=== PATIENT | female | born 1960 | race Caucasian/White ===

== ENCOUNTER 2017-10-16 09:11 | Emergency (ER) | payer MEDICARE, MEDICAID ==
[~2017-10-16] VITALS: Ht 167.6 cm; Wt 95.5 kg
[~2017-10-16 09:11] MED LIST: ACET-784 PO; AMLO2.5T PO; CELE200 PO; DSS100 PO; IPRA4AER IH; LEVO25TA9 PO; LITH300C3 PO; OMEP20 PO; QUET200T PO; SIMV-259 PO
[2017-10-16 10:55] LABS: CALCIUM, TOTAL 9.8 mg/dL (8.8-10.5); CREATININE 0.96 mg/dL (0.60-1.30); POTASSIUM 4.1 mmol/L (3.5-5.1)
[2017-10-16 11:39] VITALS: BP 142/98
[2017-10-16 11:53] LABS: APPEARANCE,URINE CLOUDY (CLEAR); BILIRUBIN,URINE NEGATIVE (NEGATIVE); GLUCOSE, URINE (UA) NEGATIVE (NEGATIVE); KETONES,URINE NEGATIVE (NEGATIVE); LEUKOCYTE ESTERASE ,URINE NEGATIVE (NEGATIVE); NITRATE,URINE POSITIVE (NEGATIVE); OCCULT BLOOD,URINE NEGATIVE (NEGATIVE); PROTEIN,URINE NEGATIVE (NEGATIVE); UROBILINOGEN,URINE 0.2 mg/dL (<=1.0)
[2017-10-16 12:13] LABS: BACTERIA,URINE Moderate /HPF (None Seen); RBC,URINE None Seen /HPF (0-2); SQUAMOUS EPITHELIAL CELL,UR Few /LPF (None Seen); WBC,URINE None Seen /HPF (0-5)
[2017-10-16] MEDS ORDERED: CIPROFLOXACIN HCL 250 MG TABLET PO ONE (12:30)
== END 2017-10-16 12:57 | disposition home or self-care (01) ==
LOC: EMS 09:14
DX: N39.0 Urinary tract infection, site not specified (principal); I10 Essential (primary) hypertension; E78.00 Pure hypercholesterolemia, unspecified; Z88.5 Allergy status to narcotic agent; Z88.8 Allergy status to other drugs, medicaments and biological substances
CPT/HCPCS: 51701; 73502; 87086; 99285

== ENCOUNTER 2025-07-20 17:03 | Inpatient (IN) | payer MEDICAID, MEDICARE ==
[~2025-07-20] VITALS: Ht 167.6 cm; Wt 95.4 kg
[~2025-07-20 17:03] MED LIST changes: -AMLO2.5T PO; +AMLO2.5T96 PO; +OMEP-148 PO; -OMEP20 PO
[2025-07-20 17:41] LABS: PLATELET COUNT (AUTO) 138 K/uL (150-450); RED BLOOD CELL COUNT(AUTO) 3.93 MIL/uL (4.00-5.20); RED CELL DISTRIBUTION WIDTH 14.7 % (11.5-14.5); WHITE BLOOD COUNT (AUTO) 6.0 K/uL (4.5-11.0)
[2025-07-20 18:01] LABS: CALCIUM, TOTAL 9.1 mg/dL (8.8-10.5); CREATININE 2.05 mg/dL (0.60-1.30); GLOMERULAR FILTR. RATE CALC 24.0 mL/min (>60); GLUCOSE,RANDOM 143.0 mg/dL (70-110); SODIUM SERUM 140.0 mmol/L (136-145); UREA NITROGEN, BLOOD 39.0 mg/dL (7-18)
[2025-07-20 18:22] LABS: COVID AG,FIA SOURCE NASAL SWAB
[2025-07-20 18:27] LABS: APPEARANCE,URINE CLEAR (CLEAR); GLUCOSE, URINE (UA) >=1000 mg/dL (NEGATIVE); LEUKOCYTE ESTERASE ,URINE NEGATIVE (NEGATIVE); NITRATE,URINE NEGATIVE (NEGATIVE); OCCULT BLOOD,URINE NEGATIVE (NEGATIVE); SPECIFIC GRAVITIY, URINE 1.013 (1.003-1.030)
[2025-07-20 18:33] LABS: ALCOHOL, URINE DRUG SCREEN NEGATIVE (NEGATIVE); AMPHET/METH SCREEN,URINE NEGATIVE (NEGATIVE); BARBITURATE SCREEN, URINE NEGATIVE (NEGATIVE); CANNABINOID SCREEN,URINE NEGATIVE (NEGATIVE); COCAINE SCREEN,URINE NEGATIVE (NEGATIVE); METHADONE SCREEN, URINE NEGATIVE (NEGATIVE)
[2025-07-20 18:39] LABS: PH,URINE DRUG SCREEN 5.0 (5.0-8.0)
[2025-07-20 18:44] LABS: SARS-COV2 (COVID) ANTIGEN,FIA Negative (Negative)
[2025-07-20] MEDS: CefTRIAXone 1 GM/DEXTROSE 50 ML IV ONE (19:00)
[2025-07-20] MEDS ORDERED: ACETAMINOPHEN 325 MG TABLET PO PRN (19:45)
[2025-07-20] MEDS ORDERED: ONDANSETRON HCL 4 MG/2 ML VIAL IVP PRN (19:45)
[2025-07-20] MEDS: DOCUSATE SODIUM 100 MG CAPSULE PO SCH (20:05)
[2025-07-21] MEDS: HEPARIN SODIUM,PORCINE 5,000 UNITS/ML VIAL SQ SCH
[2025-07-21 02:35] VITALS: BP 147/73; PULSE 85; RESP 18; TEMP 97.5; O2SAT 98
[2025-07-21] MEDS ORDERED: APIX5TAB PO (03:51)
[2025-07-21] MEDS ORDERED: CHOL3000 PO (03:51)
[2025-07-21] MEDS ORDERED: DOCU50LI40 PO (03:51)
[2025-07-21] MEDS ORDERED: ASPI81TA87 PO (03:51)
[2025-07-21] MEDS ORDERED: CARV3.1231 PO (03:51)
[2025-07-21] MEDS ORDERED: BISA-72 PO (03:51)
[2025-07-21 04:00] VITALS: BP 133/75; PULSE 68; RESP 18; TEMP 97.7; O2SAT 99
[2025-07-21] MEDS ORDERED: EMPA25TA3 PO (04:05)
[2025-07-21] MEDS ORDERED: HYDR10TA31 PO (04:05)
[2025-07-21] MEDS ORDERED: IBUP-2340 PO (04:06)
[2025-07-21] MEDS ORDERED: LACT20PA7 PO (04:28)
[2025-07-21] MEDS ORDERED: LEVO50 PO (04:28)
[2025-07-21] MEDS ORDERED: SIMV-43 PO (04:28)
[2025-07-21] MEDS ORDERED: QUET100T PO (04:28)
[2025-07-21] MEDS ORDERED: ALBU0.212 NEB (04:28)
[2025-07-21] MEDS ORDERED: RISP0.5T39 PO (04:28)
[2025-07-21] MEDS ORDERED: PANT-31 PO (04:28)
[2025-07-21] MEDS ORDERED: INSU100V SQ (04:28)
[2025-07-21] MEDS ORDERED: QUET25TA PO (04:28)
[2025-07-21] MEDS ORDERED: INSLAN SQ (04:28)
[2025-07-21] MEDS ORDERED: MAGN-169 PO (04:28)
[2025-07-21 06:40] LABS: GLUCOMETER DEV NAME(LOC) 6N.2C; GLUCOSE,POINT OF CARE 105 MG/DL (70-110)
[2025-07-21 08:03] VITALS: BP 137/78; PULSE 61; RESP 18; TEMP 97.8; O2SAT 98
[2025-07-21] MEDS ORDERED: INSULIN LISPRO 100 UNITS/ML SQ PRN (09:30)
[2025-07-21] MEDS ORDERED: DEXTROSE 50%-WATER 25 GM/50 ML SYRINGE IVP PRN ×2 (09:30)
[2025-07-21 09:35] LABS: PLATELET COUNT (AUTO) 143 K/uL (150-450); RED BLOOD CELL COUNT(AUTO) 4.12 MIL/uL (4.00-5.20); RED CELL DISTRIBUTION WIDTH 14.5 % (11.5-14.5); WHITE BLOOD COUNT (AUTO) 5.5 K/uL (4.5-11.0)
[2025-07-21 09:41] LABS: CALCIUM, TOTAL 9.7 mg/dL (8.8-10.5); CREATININE 1.83 mg/dL (0.60-1.30); GLOMERULAR FILTR. RATE CALC 28.0 mL/min (>60); GLUCOSE,RANDOM 97.0 mg/dL (70-110); SODIUM SERUM 145.0 mmol/L (136-145); UREA NITROGEN, BLOOD 31.0 mg/dL (7-18)
[2025-07-21] MEDS: RINGERS SOLUTION,LACTATED 1,000 ML IV ONE (10:06)
[2025-07-21] MEDS: LEVOTHYROXINE SODIUM 50 MCG TABLET PO SCH (10:07)
[2025-07-21] MEDS: APIXABAN 5 MG TABLET PO SCH (10:07)
[2025-07-21] MEDS: ZIPRASIDONE MESYLATE 20 MG/VIAL IM ONE (11:26)
[2025-07-21 13:31] LABS: GLUCOMETER DEV NAME(LOC) 6N.2C; GLUCOSE,POINT OF CARE 86 MG/DL (70-110)
[2025-07-21 15:34] VITALS: BP 123/91; PULSE 65; RESP 19; TEMP 98.1; O2SAT 98
[2025-07-21] MEDS: LACTULOSE 20 GM/30 ML SOLUTION UDCUP PO SCH (16:10)
[2025-07-21] MEDS ORDERED: SODIUM CHLORIDE 0.9% 500 ML IV ONE (17:12)
[2025-07-21] MEDS: CefTRIAXone 1 GM/DEXTROSE 50 ML IV SCH (17:20)
[2025-07-21 18:15] LABS: GLUCOMETER DEV NAME(LOC) 6N.2C; GLUCOSE,POINT OF CARE 102 MG/DL (70-110)
[2025-07-21 19:30] VITALS: BP 132/75; PULSE 68; RESP 18; O2SAT 99
[2025-07-21] MEDS: SIMVASTATIN 20 MG TABLET PO SCH (20:06)
[2025-07-21] MEDS: INSULIN GLARGINE,HUM.REC.ANLOG 100 UNITS/ML SQ SCH (20:09)
[2025-07-21] MEDS: INSULIN LISPRO 100 UNITS/ML SQ PRN (20:12)
[2025-07-21] MEDS ORDERED: APIXABAN 5 MG TABLET PO SCH (21:00)
[2025-07-22 02:50] LABS: GLUCOMETER DEV NAME(LOC) 6N.2C; GLUCOSE,POINT OF CARE 178 MG/DL (70-110)
[2025-07-22 04:30] VITALS: BP 144/75; PULSE 63; RESP 18; TEMP 98.1; O2SAT 100
[2025-07-22 08:13] VITALS: BP 145/96; PULSE 61; RESP 18; TEMP 97.6; O2SAT 97
[2025-07-22] MEDS: ASPIRIN 81 MG DR TABLET PO SCH (08:52)
[2025-07-22] MEDS: PANTOPRAZOLE SODIUM 40 MG DR TABLET PO SCH (08:52)
[2025-07-22] MEDS: BISACODYL 5 MG EC TABLET PO SCH (08:53)
[2025-07-22] MEDS: MAGNESIUM HYDROXIDE SUSPENSION 30 ML UDCUP PO SCH (08:53)
[2025-07-22 12:40] LABS: GLUCOMETER DEV NAME(LOC) 6N.2C; GLUCOSE,POINT OF CARE 97 MG/DL (70-110)
[2025-07-22] MEDS: *CLINICAL-LEVOFLOXACIN IVPB DOSING CLINICAL ONE (12:49)
[2025-07-22] MEDS: LEVOFLOXACIN 750 MG/D5% WATER 150 ML IV SCH (14:37)
[2025-07-22] MEDS ORDERED: SODIUM CHLORIDE 0.9% 250 ML IV ONE (14:39)
[2025-07-22 16:10] VITALS: BP 157/95; PULSE 75; RESP 18; TEMP 98; O2SAT 98
[2025-07-22 19:18] VITALS: BP 143/81; PULSE 70; RESP 18; TEMP 97.9; O2SAT 98
[2025-07-23 04:46] VITALS: BP 121/77; PULSE 71; RESP 18; TEMP 98.1; O2SAT 99
[2025-07-23 07:51] LABS: GLUCOMETER DEV NAME(LOC) 6N.2C; GLUCOSE,POINT OF CARE 119 MG/DL (70-110)
[2025-07-23 08:00] VITALS: BP 129/67; PULSE 76; RESP 19; TEMP 97.8; O2SAT 98
[2025-07-23 13:36] LABS: GLUCOMETER DEV NAME(LOC) 6N.2C; GLUCOSE,POINT OF CARE 138 MG/DL (70-110)
[2025-07-23 16:37] VITALS: BP 108/72; PULSE 75; RESP 19; TEMP 97.8; O2SAT 98
[2025-07-23 20:00] LABS: GLUCOMETER DEV NAME(LOC) 6N.2C; GLUCOSE,POINT OF CARE 106 MG/DL (70-110)
[2025-07-23 20:16] LABS: GLUCOMETER DEV NAME(LOC) 6N.2C; GLUCOSE,POINT OF CARE 160 MG/DL (70-110)
[2025-07-23 20:21] VITALS: BP 108/75; PULSE 73; RESP 18; TEMP 97.5; O2SAT 98
[2025-07-24 08:42] VITALS: BP 90/66; PULSE 74; RESP 18; TEMP 97.6; O2SAT 95
[2025-07-24 12:00] VITALS: BP 139/63; PULSE 60; RESP 18; TEMP 97.9; O2SAT 100
[2025-07-24 16:14] VITALS: BP 165/74; PULSE 57; RESP 18; TEMP 98.4; O2SAT 100
[2025-07-24 16:33] VITALS: BP 148/73; PULSE 59; RESP 18; O2SAT 100
[2025-07-24 20:00] VITALS: BP 151/77; PULSE 55; RESP 18; O2SAT 98
[2025-07-25 04:00] VITALS: BP 177/84; PULSE 62; RESP 18; TEMP 97.7; O2SAT 99
[2025-07-26] MEDS ORDERED: QUET25TA PO (14:39)
[2025-07-26] MEDS ORDERED: VALP250C48 PO (14:43)
[2025-07-26] MEDS ORDERED: LEVO750T68 PO (14:46)
== END 2025-07-24 19:57 | DRG 463 ==
LOC: EMS 17:03 → EDH 19:41 → 6S 07-21 02:30 → UNDODISIN 07-24 17:10 → 6S 07-24 19:43
PROVIDERS: ADMIT Internal Medicine; ATTEND Internal Medicine
PROC: GZ58ZZZ Individual Psychotherapy, Cognitive-Behavioral (ICD-10-PCS; principal; 2025-07-21)
PROC: GZ56ZZZ Individual Psychotherapy, Supportive (ICD-10-PCS; 2025-07-21)
DX: N39.0 Urinary tract infection, site not specified (principal); N17.0 Acute kidney failure with tubular necrosis; G93.41 Metabolic encephalopathy; D69.6 Thrombocytopenia, unspecified; B96.1 Klebsiella pneumoniae [K. pneumoniae] as the cause of diseases classified elsewhere; D64.9 Anemia, unspecified; E11.9 Type 2 diabetes mellitus without complications; Z79.01 Long term (current) use of anticoagulants; I11.0 Hypertensive heart disease with heart failure; F20.9 Schizophrenia, unspecified; E03.9 Hypothyroidism, unspecified; Z20.822 Contact with and (suspected) exposure to COVID-19; E78.00 Pure hypercholesterolemia, unspecified; I50.9 Heart failure, unspecified; F31.9 Bipolar disorder, unspecified; Z79.4 Long term (current) use of insulin; Z79.82 Long term (current) use of aspirin; Z87.891 Personal history of nicotine dependence; Z88.5 Allergy status to narcotic agent; Z79.899 Other long term (current) drug therapy
CPT/HCPCS: 71045; 71250; 72192; 74150; 80048; 80307; 81001; 82962; 83735; 85025; 87077; 87081; 87086; 87186; 96365; 99285; G0378; G0480; J0696; J1644; J1815; J1956; J3486; J7040; J7050; 36415-L1; 36415-TC